=== PATIENT | female | born 1945 | race Caucasian/White ===

== ENCOUNTER 2017-11-14 06:54 | Day surgery (SDC) | payer OTHER ==
[~2017-11-14] VITALS: Ht 152.4 cm; Wt 64.8 kg
[~2017-11-14 06:54] MED LIST: ASPIRIN81 M2 PO; COZAAR100 MG PO; GOLO RELEASE PO; ICAPS TABLET1 EACH PO; JARDIANCE25 MG PO; KENALOG,ARISTOC15 GM TP; LEVEMIR FL100 UNIT/1 SC; LIPITOR80 MG PO; METOPROLOL TART25 MG PO; PROBIOTIC1 EAC1 PO; STOOL SOFTENER100 MG PO; VICTOZA0.6 MG/0.1 SC; VITAMIN C1000 MG PO; VITAMIN D31000 UNIT PO; VOLTAREN 1% GE100 GM TP
[2017-11-14 07:37] VITALS: BP 144/67
[2017-11-14 12:40] VITALS: BP 125/66
[2017-11-14 13:15] VITALS: BP 120/72
== END 2017-11-14 13:20 | disposition home or self-care (01) ==
LOC: SDC 06:54
PROVIDERS: Ophthalmology
DX: H35.372 Puckering of macula, left eye (principal); E11.311 Type 2 diabetes mellitus with unspecified diabetic retinopathy with macular edema; E11.40 Type 2 diabetes mellitus with diabetic neuropathy, unspecified; I10 Essential (primary) hypertension; E78.5 Hyperlipidemia, unspecified; I25.10 Atherosclerotic heart disease of native coronary artery without angina pectoris; F41.8 Other specified anxiety disorders; J45.909 Unspecified asthma, uncomplicated; Z87.891 Personal history of nicotine dependence; Z79.82 Long term (current) use of aspirin; Z79.4 Long term (current) use of insulin
CPT/HCPCS: 82948; 87641; J0690; J0713; J2405; J2795; J3300